=== PATIENT | male | born 1985 | race Caucasian/White ===

== ENCOUNTER 2020-02-10 14:12 | Emergency (ER) | payer BC ==
[~2020-02-10] VITALS: Ht 193 cm; Wt 154.2 kg
--- NOTE | 2020-02-10 14:33 | Emergency Department Note ---
History of Present Illnes History of Present Illness Chief Complaint: Abdominal Complaints History of Present Illness This is a 34 year old male Chief Complaint Comment Patient in from home with complaints of right upper quadrant abdominal pain that started about 2 weeks ago. Patient has a history of abdominal pain and was diagnosed with a fatty liver and has been under the care of a chief recordist since then. Patient reports he had an ultrasound of his gallbladder done two days ago and no acute findings were noted. History of appendectomy. Historian: Patient Arrival Mode: Car Watch Assembly Inspector Required: No Onset (how long ago): week(s) (2) Location: RUQ Quality: Dull Radiation: Reports non-radiation Severity: mild Onset quality: gradual Duration (how long): week(s) Timing of current episode: constant Progression: unchanged Chronicity: new Context: Denies recent illness, Denies recent surgery Relieving factors: none Exacerbating factors: none Associated symptoms: Reports denies other symptoms Treatments prior to arrival: none Past Medical/Family History Physician Review I have reviewed the patient's past medical and family history. Any updates have been documented here. Past Medical History Recent Fever: No Clinical Suspicion of Infectio: No New/Unexplained Change in Ment: No Past Medical History: Liver Disease, Anxiety Past Surgical History: Appendectomy Other Last Tetanus: UNKNOWN Review of Systems Review of Systems Constitutional: Reports no symptoms EENTM: Reports no symptoms Cardiovascular: Reports no symptoms Respiratory: Reports no symptoms Gastrointestinal: Reports as per HPI, Reports abdominal pain, Reports constipation Genitourinary: Reports no symptoms Musculoskeletal: Reports no symptoms Integumentary: Reports no symptoms Neurological: Reports no symptoms Psychological: Reports no symptoms Endocrine: Reports no symptoms Hematological/Lymphatic: Reports no symptoms Physical Exam Related Data Allergies: Coded Allergies: No Known Allergies (Unverified , 10/26/16) Triage Vital Signs Vital Signs Date Time Temp Pulse Resp B/P (MAP) Pulse Ox O2 Delivery O2 Flow Rate FiO2 02/10/20 14:16 97.6 76 14 157/94 100 Room Air Vital signs reviewed: Yes Physical Exam CONSTITUTIONAL Constitutional: Present well-developed, Present well-nourished HENT HENT: Present normocephalic, Present atraumatic, Present oropharynx clear/moist, Present nose normal HENT L/R: Present left ext ear normal, Present right ext ear normal EYES Eyes: Reports PERRL, Reports conjunctivae normal NECK Neck: Present ROM normal PULMONARY Pulmonary: Present effort normal, Present breath sounds normal CARDIOVASCULAR Cardiovascular: Present regular rhythm, Present heart sounds normal, Present capillary refill normal, Present normal rate GASTROINTESTINAL Abdominal: Present soft, Present nontender, Present bowel sounds normal GENITOURINARY Genitourinary: Present exam deferred SKIN Skin: Present warm, Present dry MUSCULOSKELETAL Musculoskeletal: Present ROM normal NEUROLOGICAL Neurological: Present alert, Present oriented x 3, Present no gross motor or sensory deficits PSYCHOLOGICAL Psychological: Present mood/affect normal, Present judgement normal Results Laboratory Lab results reviewed: Yes Imaging Imaging results reviewed: Yes Assessment & Plan Medical Decision Making MDM 34 y.o M presents for RUQ pain. Has had extensive w/u including recent RUQ US which was negative. Labs/CT ordered. W/u benign. Doubt emergent process at this time. I discussed results patient as well as expected disease time course and management. They will follow up with their primary care provider or return to the emergency department for new or worsening symptoms. Patient's appropriate for discharge. Reassessment Reassessment time: 16:57 Reassessment Well appearing, NAD Assessment & Plan Final Impression: (1) Abdominal pain Depart Disposition: HOME, SELF-CARE Last Vital Signs Date Time Temp Pulse Resp B/P (MAP) Pulse Ox O2 Delivery O2 Flow Rate FiO2 02/10/20 14:16 97.6 76 14 157/94 100 Room Air Home Meds No Active Prescriptions or Reported Meds CHEN SHAW MD Feb 10, 2020 14:32
--- OUTSIDE RECORDS SUMMARY | 2020-02-10 14:37 | XMS REPORT | Continuity of Care Document ---
Author Author CELINA Toussaint [facility] Address Unknown Phone Unavailable Care Team Providers Care Chicken Fancier Name Role Phone [facility] Unavailable Un available Problems Problem Status Onset Date Classification Date Reported Comments Source ELEVATED LIVER ENZYMES Active 11/12/2013 Condition 06/15/2014 [facility] HYPOGONADISM Active 11/12/2013 Condition 06/15/2014 [facility] MORBID OBESITY Active 11/10/2013 Condition 06/15/2014 [facility] SNORING Inactive 11/10/2013 Condition 06/15/2014 [facility] ALLERGIC RHINITIS Active 11/10/2013 Condition 06/15/2014 [facility] CELLULITIS Inactive 02/16/2013 Condition 06/15/2014 [facility] PHARYNGITIS Inactive 02/25/2012 Condition 06/15/2014 [facility] INFLUENZA Inactive 01/17/2012 Condition 06/15/2014 [facility] POSTURAL TREMOR Inactive 03/15/2011 Condition 06/15/2014 [facility] TESTOSTERONE DEFICIENCY Inacti ve 12/21/2010 Condition 06/15/2014 [facility] HERPES ZOSTER Inactive 08/15/2009 Condition 06/15/2014 [facility] WELL ADULT Active 06/22/2009 Condition 06/15/2014 [facility] BICIPITAL TENOSYNOVITIS Inacti ve 08/23/2008 Condition 06/15/2014 [facility] ARM PAIN, RIGHT Inactive 08/23/2008 Condition 06/15/2014 [facility] RASH Inactive 04/08/2008 Condition 06/15/2014 [facility] WEIGHT GAIN Inactive 04/08/2008 Condition 06/15/2014 [facility] SINUSITIS, ACUTE Inactive 09/01/2007 Condition 06/15/2014 [facility] MOOD SWINGS Inactive 07/22/2007 Condition 06/15/2014 [facility] DEPRESSION NOS Inactive 07/22/2007 Condition 06/15/2014 [facility] HYPERLIPIDEMIA Active 05/21/2007 Condition 06/15/2014 [facility] FATIGUE Inactive 05/21/2007 Condition 06/15/2014 [facility] KNEE PAIN Inactive 05/09/2007 Condition 06/15/2014 [facility] HIP PAIN, RIGHT Inactive 02/25/2007 Condition 06/15/2014 [facility] ANXIETY Active Condition 06/15/2014 [facility] Medications Medication Details Route Status Patient Instructions Ordering Provider Order Date Source FETZIMA TITRATION 20 & 40 MG C4PK take as directed Active 06/15/2014 [facility] VITAMIN D3 12265 UNIT CAPS Damaso e 1 capsule by mouth every week Active 11/12/2013 [facility] FENOFIBRATE MICRONIZED 134 MG CAPS Take one capsule by mouth daily Active 11/12/2013 [facility] VITAMIN D3 73556 UNIT CAPS Damaso e 1 capsule by mouth every week No Longer Active 11/12/2013 [facility] ZOLOFT 25 MG TABS one tablet b y mouth once daily No Longer Active 11/10/2013 [facility] FLONASE 50 MCG/ACT SUSP Two sp rays each nostril daily No Longer Active 11/10/2013 [facility] AMOXICILLIN CAP 500MG Take one capsule by mouth 3 times a day for 10 days No Longer Active 07/08/2013 [facility] PRISTIQ 50 MG TB24 1 tab by mo ut once a day No Longer Active 07/08/2013 [facility] AMOXICILLIN CAP 500MG Take one capsule by mouth 3 times a day for 10 days No Longer Active 07/08/2013 [facility] AMOXICILLIN CAP 500MG Take one capsule by mouth 3 times a day for 10 days No Longer Active 07/08/2013 [facility] AMOXICILLIN CAP 500MG Take one capsule by mouth 3 times a day for 10 days No Longer Active 07/08/2013 [facility] HYDROCODONE-ACETAMINOPHEN 5-325 MG TABS one tablet PO every 4-6 hrs prn pain No Longer Active 02/16/2013 [facility] BACTRIM DS TAB 800-160 1 PO ev magda 12 hours No Longer Active 02/16/2013 [facility] HYDROCODONE-ACETAMINOPHEN 5-325 MG TABS one tablet PO every 4-6 hrs prn pain No Longer Active 02/16/2013 [facility] HYDROCODONE-ACETAMINOPHEN 5-325 MG TABS one tablet PO every 4-6 hrs prn pain No Longer Active 02/16/2013 [facility] HYDROCODONE-ACETAMINOPHEN 5-325 MG TABS one tablet PO every 4-6 hrs prn pain No Longer Active 02/16/2013 [facility] BUSPIRONE HCL 5 MG TABS 1 po t id No Longer Active 07/03/2012 [facility] BUSPIRONE HCL 5 MG TABS 1 po t id No Longer Active 07/03/2012 [facility] HYDROCODONE-ACETAMINOPHEN 5-500 MG TABS one po every 8 hrs prn pain No Longer Active 02/29/2012 [facility] LIDOCAINE VISCOUS 2 % SOLN 15c c swish and spit every 6 hrs prn No Longer Active 02/29/2012 [facility] CEFDINIR 300 MG CAPS one po bid No Longer Active 02/25/2012 [facility] TAMIFLU 75 MG CAPS 1 po bid x 5 days No Longer Active 01/17/2012 [facility] LYRICA 50 MG CAPS one po bid f or nerve pain Inactive 10/02/2010 [facility] LEXAPRO 20 MG TABS 1 po qd Inactive 10/02/2010 [facility] LYRICA 50 MG CAPS one po bid f or nerve pain Inactive 10/02/2010 [facility] LYRICA 50 MG CAPS one po bid f or nerve pain Inactive 10/02/2010 [facility] VALTREX 1 GM TABS 1 po tid No Longer Active 08/15/2009 [facility] MOBIC 15 MG TABS one po daily Inactive 06/22/2009 [facility] TRIAMCINOLONE ACETONIDE 0.1 % CREA apply to rash TID for 7 days Inactive 07/08/2008 [facility] AMOXICILLIN CAP 500MG one po t id for 7 days No Longer Active 09/01/2007 [facility] AMOXICILLIN CAP 500MG one po t id for 7 days No Longer Active 09/01/2007 [facility] AMOXICILLIN CAP 500MG one po t id for 7 days No Longer Active 09/01/2007 [facility] AMOXICILLIN CAP 500MG one po t id for 7 days No Longer Active 09/01/2007 [facility] Allergies, Adverse Reactions, Alerts No Known Medication Allergies Immunizations No Data Provided for This Section Results Order Name Results Value Reference Range Date Interpretation Comments Source Chemistry CHOLESTEROL 238 - 199 12/30/2013 [facility] Chemistry TRIGLYCERIDE 408 - 149 12/30/2013 [facility] Chemistry HDL 39 >=61 12/30/2013 [facility] Chemistry SODIUM 142 MEQ/L 135 - 145 12/30/2013 [facility] Chemistry POTASSIUM 4.0 MEQ/L 3.5 - 5.1 12/30/2013 [facility] Chemistry CREATININE 1.2 0.5 - 1.4 12/30/2013 [facility] Chemistry BUN 12 7 - 22 12/30/2013 [facility] Chemistry BUN/CREAT 10 6 - 25 12/30/2013 [facility] Chemistry ALBUMIN 3.9 3.5 - 5.0 12/30/2013 [facility] Chemistry CALCIUM 9.1 8.5 - 10.5 12/30/2013 [facility] Chemistry SGPT (ALT) 96 0 - 65 12/30/2013 [facility] Chemistry SGOT (AST) 44 0 - 37 12/30/2013 [facility] Chemistry ALK PHOS 41 39 - 136 12/30/2013 [facility] Chemistry CHOLESTEROL 238 - 199 12/30/2013 [facility] Chemistry TRIGLYCERIDE 408 - 149 12/30/2013 [facility] Chemistry HDL 39 >=61 12/30/2013 [facility] Chemistry LDL See Note mg/dL - 99 12/30/2013 [facility] Chemistry SODIUM 142 MEQ/L 135 - 145 12/30/2013 [facility] Chemistry POTASSIUM 4.0 MEQ/L 3.5 - 5.1 12/30/2013 [facility] Chemistry CREATININE 1.2 0.5 - 1.4 12/30/2013 [facility] Chemistry BUN 12 7 - 22 12/30/2013 [facility] Chemistry BUN/CREAT 10 6 - 25 12/30/2013 [facility] Chemistry ALBUMIN 3.9 3.5 - 5.0 12/30/2013 [facility] Chemistry CALCIUM 9.1 8.5 - 10.5 12/30/2013 [facility] Chemistry SGPT (ALT) 96 0 - 65 12/30/2013 [facility] Chemistry SGOT (AST) 44 0 - 37 12/30/2013 [facility] Chemistry ALK PHOS 41 39 - 136 12/30/2013 [facility] Chemistry CHOLESTEROL 238 - 199 12/30/2013 [facility] Chemistry TRIGLYCERIDE 408 - 149 12/30/2013 [facility] Chemistry HDL 39 >=61 12/30/2013 [facility] Chemistry LDL See Note mg/dL - 99 12/30/2013 [facility] Chemistry SODIUM 142 MEQ/L 135 - 145 12/30/2013 [facility] Chemistry POTASSIUM 4.0 MEQ/L 3.5 - 5.1 12/30/2013 [facility] Chemistry CREATININE 1.2 0.5 - 1.4 12/30/2013 [facility] Chemistry BUN 12 7 - 22 12/30/2013 [facility] Chemistry BUN/CREAT 10 6 - 25 12/30/2013 [facility] Chemistry ALBUMIN 3.9 3.5 - 5.0 12/30/2013 [facility] Chemistry CALCIUM 9.1 8.5 - 10.5 12/30/2013 [facility] Chemistry SGPT (ALT) 96 0 - 65 12/30/2013 [facility] Chemistry SGOT (AST) 44 0 - 37 12/30/2013 [facility] Chemistry ALK PHOS 41 39 - 136 12/30/2013 [facility] Chemistry HGBA1C 5.1 - 5.6 11/10/2013 [facility] Chemistry TSH 2.780 0.360 - 3.740 11/10/2013 [facility] Chemistry CHOLESTEROL 247 - 199 11/10/2013 [facility] Chemistry TRIGLYCERIDE 455 - 149 11/10/2013 [facility] Chemistry HDL 39 >=61 11/10/2013 [facility] Chemistry LDL See Note mg/dL - 99 11/10/2013 [facility] Chemistry SODIUM 139 MEQ/L 135 - 145 11/10/2013 [facility] Chemistry POTASSIUM 4.3 MEQ/L 3.5 - 5.1 11/10/2013 [facility] Chemistry CREATININE 1.2 0.5 - 1.4 11/10/2013 [facility] Chemistry BUN 10 7 - 22 11/10/2013 [facility] Chemistry BUN/CREAT 8 6 - 25 11/10/2013 [facility] Chemistry ALBUMIN 4.1 3.5 - 5.0 11/10/2013 [facility] Chemistry CALCIUM 9.6 8.5 - 10.5 11/10/2013 [facility] Chemistry SGPT (ALT) 124 0 - 65 11/10/2013 [facility] Chemistry SGOT (AST) 51 0 - 37 11/10/2013 [facility] Chemistry ALK PHOS 50 39 - 136 11/10/2013 [facility] Chemistry TESTO, TOTAL 273 241 - 827 11/10/2013 [facility] Chemistry HGBA1C 5.1 - 5.6 11/10/2013 [facility] Chemistry TSH 2.780 0.360 - 3.740 11/10/2013 [facility] Chemistry CHOLESTEROL 247 - 199 11/10/2013 [facility] Chemistry TRIGLYCERIDE 455 - 149 11/10/2013 [facility] Chemistry HDL 39 >=61 11/10/2013 [facility] Chemistry LDL See Note mg/dL - 99 11/10/2013 [facility] Chemistry SODIUM 139 MEQ/L 135 - 145 11/10/2013 [facility] Chemistry POTASSIUM 4.3 MEQ/L 3.5 - 5.1 11/10/2013 [facility] Chemistry CREATININE 1.2 0.5 - 1.4 11/10/2013 [facility] Chemistry BUN 10 7 - 22 11/10/2013 [facility] Chemistry BUN/CREAT 8 6 - 25 11/10/2013 [facility] Chemistry ALBUMIN 4.1 3.5 - 5.0 11/10/2013 [facility] Chemistry CALCIUM 9.6 8.5 - 10.5 11/10/2013 [facility] Chemistry SGPT (ALT) 124 0 - 65 11/10/2013 [facility] Chemistry SGOT (AST) 51 0 - 37 11/10/2013 [facility] Chemistry ALK PHOS 50 39 - 136 11/10/2013 [facility] Chemistry TESTO, TOTAL 273 241 - 827 11/10/2013 [facility] Hematology HGB 15.9 14.0 - 18.0 11/10/2013 [facility] Hematology HCT 46.1 42.0 - 54.0 11/10/2013 [facility] Hematology PLATELETS 188 K/CMM 133 - 450 11/10/2013 [facility] Hematology HGB 15.9 14.0 - 18.0 02/25/2012 [facility] Hematology HCT 45.4 42.0 - 54.0 02/25/2012 [facility] Hematology PLATELETS 127 K/CMM 133 - 450 02/25/2012 [facility] Chemistry CHOLESTEROL 239 120 - 200 10/19/2010 [facility] Chemistry TRIGLYCERIDE 223 0 - 200 10/19/2010 [facility] Chemistry HDL 42 >=35 10/19/2010 [facility] Chemistry CHOLESTEROL 239 120 - 200 10/19/2010 [facility] Chemistry TRIGLYCERIDE 223 0 - 200 10/19/2010 [facility] Chemistry HDL 42 >=35 10/19/2010 [facility] Chemistry LDL 152 0 - 129 10/19/2010 [facility] Chemistry FOLATE 39.8 >=3.0 10/19/2010 [facility] Chemistry TSH 2.230 0.360 - 3.740 10/19/2010 [facility] Chemistry SODIUM 141 MEQ/L 135 - 145 10/19/2010 [facility] Chemistry POTASSIUM 4.1 MEQ/L 3.5 - 5.1 10/19/2010 [facility] Chemistry BUN 12 7 - 22 10/19/2010 [facility] Chemistry CREATININE 1.1 0.5 - 1.4 10/19/2010 [facility] Chemistry BUN/CREAT 11 6 - 25 10/19/2010 [facility] Chemistry ALBUMIN 4.3 3.5 - 5.0 10/19/2010 [facility] Chemistry CALCIUM 9.2 8.5 - 10.5 10/19/2010 [facility] Chemistry SGOT (AST) 29 0 - 37 10/19/2010 [facility] Chemistry CHOLESTEROL 239 120 - 200 10/19/2010 [facility] Chemistry TRIGLYCERIDE 223 0 - 200 10/19/2010 [facility] Chemistry HDL 42 >=35 10/19/2010 [facility] Chemistry LDL 152 0 - 129 10/19/2010 [facility] Chemistry FOLATE 39.8 >=3.0 10/19/2010 [facility] Chemistry TSH 2.230 0.360 - 3.740 10/19/2010 [facility] Chemistry SODIUM 141 MEQ/L 135 - 145 10/19/2010 [facility] Chemistry POTASSIUM 4.1 MEQ/L 3.5 - 5.1 10/19/2010 [facility] Chemistry BUN 12 7 - 22 10/19/2010 [facility] Chemistry CREATININE 1.1 0.5 - 1.4 10/19/2010 [facility] Chemistry BUN/CREAT 11 6 - 25 10/19/2010 [facility] Chemistry ALBUMIN 4.3 3.5 - 5.0 10/19/2010 [facility] Chemistry CALCIUM 9.2 8.5 - 10.5 10/19/2010 [facility] Chemistry SGOT (AST) 29 0 - 37 10/19/2010 [facility] Chemistry SGPT (ALT) 44 0 - 65 10/19/2010 [facility] Chemistry ALK PHOS 52 39 - 136 10/19/2010 [facility] Chemistry TESTO, FREE 62.8 35.0 - 155.0 10/19/2010 [facility] Chemistry SGPT (ALT) 44 0 - 65 10/19/2010 [facility] Chemistry ALK PHOS 52 39 - 136 10/19/2010 [facility] Chemistry TESTO, FREE 62.8 35.0 - 155.0 10/19/2010 [facility] Hematology HGB 15.0 14.0 - 18.0 10/19/2010 [facility] Hematology HCT 42.1 42.0 - 54.0 10/19/2010 [facility] Hematology PLATELETS 152 K/CMM 133 - 450 10/19/2010 [facility] Serology EMANUEL Negative Negative 10/19/2010 [facility] Serology EMANUEL Negative Negative 10/19/2010 [facility] Serology EMANUEL Negative Negative 10/19/2010 [facility] Chemistry CHOLESTEROL 209 120 - 200 06/22/2009 [facility] Chemistry TRIGLYCERIDE 307 0 - 200 06/22/2009 [facility] Chemistry HDL 38 >=35 06/22/2009 [facility] Chemistry CHOLESTEROL 209 120 - 200 06/22/2009 [facility] Chemistry TRIGLYCERIDE 307 0 - 200 06/22/2009 [facility] Chemistry HDL 38 >=35 06/22/2009 [facility] Chemistry LDL 110 0 - 129 06/22/2009 [facility] Chemistry TSH 1.480 0.360 - 3.740 06/22/2009 [facility] Chemistry SODIUM 139 135 - 145 06/22/2009 [facility] Chemistry POTASSIUM 4.0 3.5 - 5.1 06/22/2009 [facility] Chemistry BUN 14 7 - 22 06/22/2009 [facility] Chemistry CREATININE 1.3 0.5 - 1.4 06/22/2009 [facility] Chemistry BUN/CREAT 11 6 - 25 06/22/2009 [facility] Chemistry ALBUMIN 4.0 3.5 - 5.0 06/22/2009 [facility] Chemistry CALCIUM 9.2 8.5 - 10.5 06/22/2009 [facility] Chemistry CHOLESTEROL 209 120 - 200 06/22/2009 [facility] Chemistry TRIGLYCERIDE 307 0 - 200 06/22/2009 [facility] Chemistry HDL 38 >=35 06/22/2009 [facility] Chemistry LDL 110 0 - 129 06/22/2009 [facility] Chemistry TSH 1.480 0.360 - 3.740 06/22/2009 [facility] Chemistry SODIUM 139 135 - 145 06/22/2009 [facility] Chemistry POTASSIUM 4.0 3.5 - 5.1 06/22/2009 [facility] Chemistry BUN 14 7 - 22 06/22/2009 [facility] Chemistry CREATININE 1.3 0.5 - 1.4 06/22/2009 [facility] Chemistry BUN/CREAT 11 6 - 25 06/22/2009 [facility] Chemistry ALBUMIN 4.0 3.5 - 5.0 06/22/2009 [facility] Chemistry CALCIUM 9.2 8.5 - 10.5 06/22/2009 [facility] Chemistry SGOT (AST) 30 0 - 37 06/22/2009 [facility] Chemistry SGPT (ALT) 49 0 - 65 06/22/2009 [facility] Chemistry ALK PHOS 53 39 - 136 06/22/2009 [facility] Chemistry SGOT (AST) 30 0 - 37 06/22/2009 [facility] Chemistry SGPT (ALT) 49 0 - 65 06/22/2009 [facility] Chemistry ALK PHOS 53 39 - 136 06/22/2009 [facility] Hematology HGB 15.9 14.0 - 18.0 06/22/2009 [facility] Hematology HCT 44.6 42.0 - 54.0 06/22/2009 [facility] Hematology PLATELETS 146 K/CMM 133 - 450 06/22/2009 [facility] Urinalysis UA COLOR Yellow Yellow 06/22/2009 [facility] Urinalysis BACTERIA URN None Seen NoneSeen 06/22/2009 [facility] Urinalysis UA COLOR Yellow Yellow 06/22/2009 [facility] Urinalysis BACTERIA URN None Seen NoneSeen 06/22/2009 [facility] Chemistry CHOLESTEROL 264 05/10/2007 [facility] Chemistry HDL 43 05/10/2007 [facility] Chemistry LDL 168 05/10/2007 [facility] Chemistry CHOLESTEROL 264 05/10/2007 [facility] Chemistry HDL 43 05/10/2007 [facility] Chemistry LDL 168 05/10/2007 [facility] Chemistry TRIGLYCERIDE 267 05/10/2007 [facility] Chemistry ALBUMIN 5.1 05/10/2007 [facility] Chemistry ALK PHOS 56 05/10/2007 [facility] Chemistry BUN/CREAT 13 05/10/2007 [facility] Chemistry CALCIUM 9.9 05/10/2007 [facility] Chemistry CHOLESTEROL 264 05/10/2007 [facility] Chemistry HDL 43 05/10/2007 [facility] Chemistry LDL 168 05/10/2007 [facility] Chemistry TRIGLYCERIDE 267 05/10/2007 [facility] Chemistry ALBUMIN 5.1 05/10/2007 [facility] Chemistry ALK PHOS 56 05/10/2007 [facility] Chemistry BUN/CREAT 13 05/10/2007 [facility] Chemistry CALCIUM 9.9 05/10/2007 [facility] Chemistry CREATININE 1.15 05/10/2007 [facility] Chemistry POTASSIUM 4.4 05/10/2007 [facility] Chemistry SODIUM 140 05/10/2007 [facility] Chemistry CREATININE 1.15 05/10/2007 [facility] Chemistry POTASSIUM 4.4 05/10/2007 [facility] Chemistry SODIUM 140 05/10/2007 [facility] Hematology HGB 17.3 05/10/2007 [facility] Hematology HCT 49.7 05/10/2007 [facility] Hematology PLATELETS 175 05/10/2007 [facility] Pathology Reports No Data Provided for This Section Diagnostic Reports No Data Provided for This Section Consultation Notes No Data Provided for This Section Discharge Summaries No Data Provided for This Section History and Physicals No Data Provided for This Section Vital Signs Vital Sign Value Date Comments Source Height 74 0 06/15/2014 [facility] Weight 338 06/15/2014 [facility] Temperature Oral (F) 98.0 F 06/15/2014 [facility] Heart Rate 87 06/15/2014 [facility] Systolic (mm Hg) 135 06/15/2014 [facility] Diastolic (mm Hg) 82 06/15/2014 [facility] Weight 331 12/30/2013 [facility] Temperature Oral (F) 97.3 F 12/30/2013 [facility] Respitory Rate 16 12/30/2013 [facility] Heart Rate 87 12/30/2013 [facility] Systolic (mm Hg) 110 12/30/2013 [facility] Diastolic (mm Hg) 70 12/30/2013 [facility] Height 74 0 11/10/2013 [facility] Weight 326.13 11/10/2013 [facility] Temperature Oral (F) 97.8 F 11/10/2013 [facility] Heart Rate 74 11/10/2013 [facility] Systolic (mm Hg) 128 11/10/2013 [facility] Diastolic (mm Hg) 79 11/10/2013 [facility] Weight 336 07/08/2013 [facility] Temperature Oral (F) 98.0 F 07/08/2013 [facility] Heart Rate 85 07/08/2013 [facility] Systolic (mm Hg) 124 07/08/2013 [facility] Diastolic (mm Hg) 78 07/08/2013 [facility] Weight 335 02/16/2013 [facility] Weight 305 06/23/2012 [facility] Temperature Oral (F) 97.3 F 06/23/2012 [facility] Systolic (mm Hg) 126 06/23/2012 [facility] Diastolic (mm Hg) 70 06/23/2012 [facility] Heart Rate 89 06/23/2012 [facility] Weight 290 02/25/2012 [facility] Temperature Oral (F) 102.3 F 02/25/2012 [facility] Systolic (mm Hg) 128 02/25/2012 [facility] Diastolic (mm Hg) 76 02/25/2012 [facility] Heart Rate 108 02/25/2012 [facility] Weight 291 01/17/2012 [facility] Heart Rate 116 01/17/2012 [facility] Temperature Oral (F) 101.7 F 01/17/2012 [facility] Systolic (mm Hg) 129 01/17/2012 [facility] Diastolic (mm Hg) 66 01/17/2012 [facility] Weight 290 03/15/2011 [facility] Temperature Oral (F) 97.7 F 03/15/2011 [facility] Systolic (mm Hg) 136 03/15/2011 [facility] Diastolic (mm Hg) 66 03/15/2011 [facility] Heart Rate 77 03/15/2011 [facility] Weight 280 12/21/2010 [facility] Temperature Oral (F) 97.4 F 12/21/2010 [facility] Systolic (mm Hg) 130 12/21/2010 [facility] Diastolic (mm Hg) 67 12/21/2010 [facility] Heart Rate 72 12/21/2010 [facility] Height 74 0 10/19/2010 [facility] Weight 277 10/19/2010 [facility] Temperature Oral (F) 97.7 F 10/19/2010 [facility] Systolic (mm Hg) 110 10/19/2010 [facility] Diastolic (mm Hg) 55 10/19/2010 [facility] Heart Rate 80 10/19/2010 [facility] Height 74 0 10/02/2010 [facility] Weight 277 10/02/2010 [facility] Temperature Oral (F) 97.7 F 10/02/2010 [facility] Systolic (mm Hg) 133 10/02/2010 [facility] Diastolic (mm Hg) 53 10/02/2010 [facility] Heart Rate 73 10/02/2010 [facility] Weight 263 08/15/2009 [facility] Height 74 0 08/15/2009 [facility] Temperature Oral (F) 97.5 F 08/15/2009 [facility] Systolic (mm Hg) 98 08/15/2009 [facility] Diastolic (mm Hg) 50 08/15/2009 [facility] Heart Rate 85 08/15/2009 [facility] Weight 279 06/22/2009 [facility] Height 74 0 06/22/2009 [facility] Temperature Oral (F) 96.9 F 06/22/2009 [facility] Systolic (mm Hg) 111 06/22/2009 [facility] Diastolic (mm Hg) 64 06/22/2009 [facility] Heart Rate 68 06/22/2009 [facility] Height 74 1 [facility] Weight 270 12/29/2008 [facility] Temperature Oral (F) 96.6 F 12/29/2008 [facility] Systolic (mm Hg) 120 12/29/2008 [facility] Diastolic (mm Hg) 58 12/29/2008 [facility] Heart Rate 70 12/29/2008 [facility] Height 74 0 08/23/2008 [facility] Weight 272 08/23/2008 [facility] Temperature Oral (F) 98.2 F 08/23/2008 [facility] Heart Rate 95 08/23/2008 [facility] Systolic (mm Hg) 128 08/23/2008 [facility] Diastolic (mm Hg) 71 08/23/2008 [facility] Weight 263.19 07/08/2008 [facility] Height 74 0 07/08/2008 [facility] Temperature Oral (F) 98.0 F 07/08/2008 [facility] Heart Rate 86 07/08/2008 [facility] Systolic (mm Hg) 117 07/08/2008 [facility] Diastolic (mm Hg) 60 07/08/2008 [facility] Weight 287 04/08/2008 [facility] Temperature Oral (F) 97.8 F 04/08/2008 [facility] Systolic (mm Hg) 112 04/08/2008 [facility] Diastolic (mm Hg) 62 04/08/2008 [facility] Heart Rate 91 04/08/2008 [facility] Weight 274 09/01/2007 [facility] Temperature Oral (F) 97.9 F 09/01/2007 [facility] Heart Rate 79 09/01/2007 [facility] Systolic (mm Hg) 107 09/01/2007 [facility] Diastolic (mm Hg) 67 09/01/2007 [facility] Weight 274.25 07/22/2007 [facility] Temperature Oral (F) 97.2 F 07/22/2007 [facility] Systolic (mm Hg) 12 07/22/2007 [facility] Diastolic (mm Hg) 63 07/22/2007 [facility] Heart Rate 78 07/22/2007 [facility] Height 74 0 07/22/2007 [facility] Weight 275 05/21/2007 [facility] Height 6'4 05/21/2007 [facility] Systolic (mm Hg) 124 05/21/2007 [facility] Diastolic (mm Hg) 61 05/21/2007 [facility] Weight 273.4 05/09/2007 [facility] Height 6'4 05/09/2007 [facility] Systolic (mm Hg) 121 05/09/2007 [facility] Diastolic (mm Hg) 71 05/09/2007 [facility] Weight 274.8 02/25/2007 [facility] Height 6'4 02/25/2007 [facility] Systolic (mm Hg) 121 02/25/2007 [facility] Diastolic (mm Hg) 73 02/25/2007 [facility] Encounters Location Location Details Encounter Type Encounter Number Reason For Visit Attending Provider ADM Date DC Date Status Source [facility] Office Visit [id number] Carmen Hankins MD 11/10/2013 11/10/2013 [facility] Lab Report [id number] Carmen Hankins MD 11/10/2013 11/10/2013 [facility] Office Visit [id number] Carmen Hankins MD 12/30/2013 12/30/2013 [facility] Lab Report [id number] Carmen Hankins MD 12/30/2013 12/30/2013 [facility] Office Visit [id number] Carmen Hankins MD 06/15/2014 06/15/2014 [facility] Outpatient [id number] MAYA VAIL 01/17/2016 Active [facility] Procedures No Data Provided for This Section Assessment and Plan No Data Provided for This Section Plan of Care No Data Provided for This Section Social History No Data Provided for This Section Family History No Data Provided for This Section Advance Directives No Data Provided for This Section Functional Status No Data Provided for This Section
--- OUTSIDE RECORDS SUMMARY | 2020-02-10 14:37 | XMS REPORT | Continuity of Care Document ---
Author Author [facility] t Organization [facility] Address [address] [place] [address] [address] [place] [address] Phone Unavailable Care Team Providers Care Supervisor Facepiece Line Name Role Phone Visit, Nurse Adc Attphys Unavailable Pc, Echo Room 1 - Adc Attphys Unavailable LUDY VICKERS Attphys Unavailable Problems Condition Name Condition Details Condition Category Status Onset Date Resolution Date Last Treatment Date Treating Clinician Comments Source ELEVATED LIVER ENZYMES ELEV ATED LIVER ENZYMES Active 11/12/2013 Condition 06/15/2014 Medical Group Condition Active 2013-11-12 00:00:00 2014-06-15 15:18:01 [facility] HYPOGONADISM HYPO GONADISM Active 11/12/2013 Condition 06/15/2014 Medical Group Condition Active 2013-11-12 00:00:00 2014-06-15 15:18:01 Henry Gonsalez MORBID OBESITY MORB ID OBESITY Active 11/10/2013 Condition 06/15/2014 Medical Group Condition Active 2013-11-10 00:00:00 2014-06-15 15:18:01 Henry Gonsalez ALLERGIC RHINITIS CAROL RGIC RHINITIS Active 11/10/2013 Condition 06/15/2014 Medical Group Condition Active 2013-11-10 00:00:00 2014-06-15 15:18:01 [facility] WELL ADULT WELL ADULT Active 06/22/2009 Condition 06/15/2014 Medical Group Condition Active 2009-06-22 00:00:00 2014-06-15 1 5:18:01 [facility] HYPERLIPIDEMIA HYPE RLIPIDEMIA Active 05/21/2007 Condition 06/15/2014 Medical Group Condition Active 2007-05-21 00:00:00 2014-06-15 15:18:01 Henry Gonsalez ANXIETY ANXI ETY Active Condition 06/15/2014 Medical Group Condition Active 2014-06-15 15:18:01 [facility] History of Past Illness Condition Name Condition Details Condition Category Status Onset Date Resolution Date Last Treatment Date Treating Clinician Comments Source SNORING SNOR ING Inactive 11/10/2013 Condition 06/15/2014 Medical Group Condition Inactive 2013-11-10 00:00:00 2014-06-15 15:18:01 2014-06-15 15:18:01 [facility] CELLULITIS CELL ULITIS Inactive 02/16/2013 Condition 06/15/2014 Medical Group Condition Inactive 2013-02-16 00:00:00 2014-06-15 15: 18:01 2014-06-15 15:18:01 [facility] PHARYNGITIS PHAR YNGITIS Inactive 02/25/2012 Condition 06/15/2014 Medical Group Condition Inactive 2012-02-25 00:00:00 23-06-06 15:18:01 2014-06-15 15:18:01 [facility] INFLUENZA INFL UENZA Inactive 01/17/2012 Condition 06/15/2014 Medical Group Condition Inactive 2012-01-17 00:00:00 2014-06-15 15:18 :01 2014-06-15 15:18:01 [facility] POSTURAL TREMOR POST URAL TREMOR Inactive 03/15/2011 Condition 06/15/2014 Medical Group Condition Inactive 2011-03-15 00: 00:00 2014-06-15 15:18:01 2014-06-15 15:18:01 [facility] TESTOSTERONE DEFICIENCY TEST OSTERONE DEFICIENCY Inactive 12/21/2010 Condition 06/15/2014 Medical Group Condition Inactive 2010-12-21 00:00:00 2014-06-15 15:18:01 2014-06-15 [facility]:18:01 [facility] HER[facility] ZOSTER HERP ES ZOSTER Inactive 08/15/2009 Condition 06/15/2014 Medical Group Condition Inactive 2009-08-15 00: 00:00 2014-06-15 15:18:01 2014-06-15 15:18:01 [facility] BICIPITAL TENOSYNOVITIS BICI PITAL TENOSYNOVITIS Inactive 08/23/2008 Condition 06/15/2014 Medical Group Condition Inactive 2008-08-23 00:00:00 2014-06-15 15:18:01 2014-06-15 15:18:01 [facility] ARM PAIN, RIGHT ARM PAIN, RIGHT Inactive 08/23/2008 Condition 06/15/2014 Medical Group Condition Inactive 2008-08-23 00: 00:00 2014-06-15 15:18:01 2014-06-15 15:18:01 [facility] RASH RASH Inactive 04/08/2008 Condition 06/15/2014 Medical Group Condition Inactive 2008-04-08 00:00:00 2014-06-15 15:18:01 2014-06-15 15:18:01 [facility] WEIGHT GAIN WEIG HT GAIN Inactive 04/08/2008 Condition 06/15/2014 Medical Group Condition Inactive 2008-04-08 00:00:00 20 23-06-06 15:18:01 2014-06-15 15:18:01 [facility] SINUSITIS, ACUTE SINU SITIS, ACUTE Inactive 09/01/2007 Condition 06/15/2014 Medical Group Condition Inactive 2007-09-01 00: 00:00 2014-06-15 15:18:01 2014-06-15 15:18:01 [facility] MOOD SWINGS MOOD SWINGS Inactive 07/22/2007 Condition 06/15/2014 Medical Group Condition Inactive 2007-07-22 00:00:00 23-06-06 15:18:01 2014-06-15 15:18:01 [facility] DEPRESSION NOS DEPR ESSION NOS Inactive 07/22/2007 Condition 06/15/2014 Medical Group Condition Inactive 2007-07-22 00: 00:00 2014-06-15 15:18:01 2014-06-15 15:18:01 [facility] FATIGUE FATI BRI Inactive 05/21/2007 Condition 06/15/2014 Medical Group Condition Inactive 2007-05-21 00:00:00 2014-06-15 15:18:01 2014-06-15 15:18:01 [facility] KNEE PAIN KNEE PAIN Inactive 05/09/2007 Condition 06/15/2014 Medical Group Condition Inactive 2007-05-09 00:00:00 2014-06-15 15:18 :01 2014-06-15 15:18:01 [facility] HIP PAIN, RIGHT HIP PAIN, RIGHT Inactive 02/25/2007 Condition 06/15/2014 Medical Group Condition Inactive 2007-02-25 00: 00:00 2014-06-15 15:18:01 2014-06-15 15:18:01 [facility] Allergies, Adverse Reactions, Alerts This patient has no known allergies or adverse reactions. Medications Ordered Medication Name Filled Medication Name Start Date Stop Da te Current Medication? Ordering Clinician Indication Dosage Frequency Signature (SIG) Comments Components Source FETZIMA TITRATION 20 & 40 MG C4PK 2014-06-15 00:00:00 Yes take as directed [facility] VITAMIN D3 37718 UNIT CAPS 2013-11-12 00:00:00 Yes Take 1 capsule by mouth every week [facility] FENOFIBRATE MICRONIZED 134 MG CAPS 2013-11-12 00:00:00 Yes Take one capsule by mouth daily [facility] VITAMIN D3 15423 UNIT CAPS 2013-11-12 00:00:00 No Take 1 capsule by mouth every week [facility] ZOLOFT 25 MG TABS 2013-11-10 00:00:00 No one tablet by mouth once daily [facility] FLONASE 50 MCG/ACT SUSP 2013-11-10 00:00:00 No Two sprays each nostril daily [facility] AMOXICILLIN CAP 500MG 2013-07-08 00:00:00 No Take one capsule by mouth 3 times a day for 10 days [facility] PRISTIQ 50 MG TB24 2013-07-08 00:00:00 No 1 tab by mouth once a day [facility] AMOXICILLIN CAP 500MG 2013-07-08 00:00:00 No Take one capsule by mouth 3 times a day for 10 days [facility] AMOXICILLIN CAP 500MG 2013-07-08 00:00:00 No Take one capsule by mouth 3 times a day for 10 days [facility] AMOXICILLIN CAP 500MG 2013-07-08 00:00:00 No Take one capsule by mouth 3 times a day for 10 days [facility] HYDROCODONE-ACETAMINOPHEN 5-325 MG TABS 2013-02-16 00:00:00 No one tablet PO every 4-6 hrs prn pain [facility] BACTRIM DS TAB 810-637 4838-12-09 00:00:00 No 1 PO every 12 hours [facility] HYDROCODONE-ACETAMINOPHEN 5-325 MG TABS 2013-02-16 00:00:00 No one tablet PO every 4-6 hrs prn pain [facility] HYDROCODONE-ACETAMINOPHEN 5-325 MG TABS 2013-02-16 00:00:00 No one tablet PO every 4-6 hrs prn pain [facility] HYDROCODONE-ACETAMINOPHEN 5-325 MG TABS 2013-02-16 00:00:00 No one tablet PO every 4-6 hrs prn pain [facility] BUSPIRONE HCL 5 MG TABS 2012-07-03 00:00:00 No 1 po tid [facility] BUSPIRONE HCL 5 MG TABS 2012-07-03 00:00:00 No 1 po tid [facility] HYDROCODONE-ACETAMINOPHEN 5-500 MG TABS 2012-02-29 00:00:00 No one po every 8 hrs prn pain [facility] LIDOCAINE VISCOUS 2 % SOLN 2012-02-29 00:00:00 No 15cc swish and spit every 6 hrs prn [facility] CEFDINIR 300 MG CAPS 2012-02-25 00:00:00 No one po bid [facility] TAMIFLU 75 MG CAPS 2012-01-17 00:00:00 No 1 po bid x 5 days [facility] LYRICA 50 MG CAPS 2010-10-02 00:00:00 No one po bid for nerve pain [facility] LEXAPRO 20 MG TABS 2010-10-02 00:00:00 No 1 po qd [facility] LYRICA 50 MG CAPS 2010-10-02 00:00:00 No one po bid for nerve pain [facility] LYRICA 50 MG CAPS 2010-10-02 00:00:00 No one po bid for nerve pain [facility] VALTREX 1 GM TABS 2009-08-15 00:00:00 No 1 po tid [facility] MOBIC 15 MG TABS 2009-06-22 00:00:00 No one po daily [facility] TRIAMCINOLONE ACETONIDE 0.1 % CREA 2008-07-08 00:00:00 No apply to rash TID for 7 days [facility] AMOXICILLIN CAP 500MG 2007-09-01 00:00:00 No one po tid for 7 days [facility] AMOXICILLIN CAP 500MG 2007-09-01 00:00:00 No one po tid for 7 days [facility] AMOXICILLIN CAP 500MG 2007-09-01 00:00:00 No one po tid for 7 days [facility] AMOXICILLIN CAP 500MG 2007-09-01 00:00:00 No one po tid for 7 days [facility] Vital Signs Vital Name Observation Time Observation Value Comments Source Height 2014-06-15 20:18:01 [facility] Weight 2014-06-15 20:18:01 [facility] Temperature Oral (F) 2014-06-15 20:18:01 98.0 F [facility] Heart Rate 2014-06-15 20:18:01 [facility] Systolic (mm Hg) 2014-06-15 20:18:01 [facility] Diastolic (mm Hg) 2014-06-15 20:18:01 [facility] Weight 2013-12-30 12:35:41 [facility] Temperature Oral (F) 2013-12-30 12:35:41 97.3 F [facility] Respitory Rate 2013-12-30 12:35:41 [facility] Heart Rate 2013-12-30 12:35:41 [facility] Systolic (mm Hg) 2013-12-30 12:35:41 [facility] Diastolic (mm Hg) 2013-12-30 12:35:41 [facility] Height 2013-11-10 13:39:23 [facility] Weight 2013-11-10 13:39:23 [facility] Temperature Oral (F) 2013-11-10 13:39:23 97.8 F [facility] Heart Rate 2013-11-10 13:39:23 [facility] Systolic (mm Hg) 2013-11-10 13:39:23 [facility] Diastolic (mm Hg) 2013-11-10 13:39:23 [facility] Weight 2013-07-08 18:53:52 [facility] Temperature Oral (F) 2013-07-08 18:53:52 98.0 F [facility] Heart Rate 2013-07-08 18:53:52 [facility] Systolic (mm Hg) 2013-07-08 18:53:52 [facility] Diastolic (mm Hg) 2013-07-08 18:53:52 [facility] Weight 2013-02-16 18:38:41 [facility] Weight 2012-06-23 20:54:21 [facility] Temperature Oral (F) 2012-06-23 20:54:21 97.3 F [facility] Systolic (mm Hg) 2012-06-23 20:54:21 [facility] Diastolic (mm Hg) 2012-06-23 20:54:21 [facility] Heart Rate 2012-06-23 20:54:21 [facility] Weight 2012-02-25 22:01:21 [facility] Temperature Oral (F) 2012-02-25 22:01:21 102.3 F [facility] Systolic (mm Hg) 2012-02-25 22:01:21 [facility] Diastolic (mm Hg) 2012-02-25 22:01:21 [facility] Heart Rate 2012-02-25 22:01:21 [facility] Weight 2012-01-17 15:28:50 [facility] Heart Rate 2012-01-17 15:28:50 [facility] Temperature Oral (F) 2012-01-17 15:28:50 101.7 F [facility] Systolic (mm Hg) 2012-01-17 15:28:50 [facility] Diastolic (mm Hg) 2012-01-17 15:28:50 [facility] Weight 2011-03-15 14:49:41 [facility] Temperature Oral (F) 2011-03-15 14:49:41 97.7 F [facility] Systolic (mm Hg) 2011-03-15 14:49:41 [facility] Diastolic (mm Hg) 2011-03-15 14:49:41 [facility] Heart Rate 2011-03-15 14:49:41 [facility] Weight 2010-12-21 15:03:21 [facility] Temperature Oral (F) 2010-12-21 15:03:21 97.4 F [facility] Systolic (mm Hg) 2010-12-21 15:03:21 [facility] Diastolic (mm Hg) 2010-12-21 15:03:21 [facility] Heart Rate 2010-12-21 15:03:21 [facility] Height 2010-10-19 15:03:51 [facility] Weight 2010-10-19 15:03:51 [facility] Temperature Oral (F) 2010-10-19 15:03:51 97.7 F [facility] Systolic (mm Hg) 2010-10-19 15:03:51 [facility] Diastolic (mm Hg) 2010-10-19 15:03:51 [facility] Heart Rate 2010-10-19 15:03:51 [facility] Height 2010-10-02 19:58:00 [facility] Weight 2010-10-02 19:58:00 [facility] Temperature Oral (F) 2010-10-02 19:58:00 97.7 F [facility] Systolic (mm Hg) 2010-10-02 19:58:00 [facility] Diastolic (mm Hg) 2010-10-02 19:58:00 [facility] Heart Rate 2010-10-02 19:58:00 [facility] Weight 2009-08-15 16:11:10 [facility] Height 2009-08-15 16:11:10 [facility] Temperature Oral (F) 2009-08-15 16:11:10 97.5 F [facility] Systolic (mm Hg) 2009-08-15 16:11:10 [facility] Diastolic (mm Hg) 2009-08-15 16:11:10 [facility] Heart Rate 2009-08-15 16:11:10 [facility] Weight 2009-06-22 13:32:40 [facility] Height 2009-06-22 13:32:40 [facility] Temperature Oral (F) 2009-06-22 13:32:40 96.9 F [facility] Systolic (mm Hg) 2009-06-22 13:32:40 [facility] Diastolic (mm Hg) 2009-06-22 13:32:40 [facility] Heart Rate 2009-06-22 13:32:40 [facility] Height 2008-12-29 16:34:30 [facility] Weight 2008-12-29 16:34:30 [facility] Temperature Oral (F) 2008-12-29 16:34:30 96.6 F [facility] Systolic (mm Hg) 2008-12-29 16:34:30 [facility] Diastolic (mm Hg) 2008-12-29 16:34:30 [facility] Heart Rate 2008-12-29 16:34:30 [facility] Height 2008-08-23 17:04:31 [facility] Weight 2008-08-23 17:04:31 [facility] Temperature Oral (F) 2008-08-23 17:04:31 98.2 F [facility] Heart Rate 2008-08-23 17:04:31 [facility] Systolic (mm Hg) 2008-08-23 17:04:31 [facility] Diastolic (mm Hg) 2008-08-23 17:04:31 [facility] Weight 2008-07-08 18:58:21 [facility] Height 2008-07-08 18:58:21 [facility] Temperature Oral (F) 2008-07-08 18:58:21 98.0 F [facility] Heart Rate 2008-07-08 18:58:21 [facility] Systolic (mm Hg) 2008-07-08 18:58:21 [facility] Diastolic (mm Hg) 2008-07-08 18:58:21 [facility] Weight 2008-04-08 19:46:32 [facility] Temperature Oral (F) 2008-04-08 19:46:32 97.8 F [facility] Systolic (mm Hg) 2008-04-08 19:46:32 [facility] Diastolic (mm Hg) 2008-04-08 19:46:32 [facility] Heart Rate 2008-04-08 19:46:32 [facility] Weight 2007-09-01 16:19:44 [facility] Temperature Oral (F) 2007-09-01 16:19:44 97.9 F [facility] Heart Rate 2007-09-01 16:19:44 [facility] Systolic (mm Hg) 2007-09-01 16:19:44 [facility] Diastolic (mm Hg) 2007-09-01 16:19:44 [facility] Weight 2007-07-22 17:45:22 [facility] Temperature Oral (F) 2007-07-22 17:45:22 97.2 F [facility] Systolic (mm Hg) 2007-07-22 17:45:22 [facility] Diastolic (mm Hg) 2007-07-22 17:45:22 [facility] Heart Rate 2007-07-22 17:45:22 [facility] Height 2007-07-22 17:45:22 [facility] Weight 2007-05-21 15:49:13 [facility] Height 2007-05-21 15:49:13 [facility] Systolic (mm Hg) 2007-05-21 15:49:13 [facility] Diastolic (mm Hg) 2007-05-21 15:49:13 [facility] Weight 2007-05-09 16:49:13 [facility] Height 2007-05-09 16:49:13 [facility] Systolic (mm Hg) 2007-05-09 16:49:13 [facility] Diastolic (mm Hg) 2007-05-09 16:49:13 [facility] Weight 2007-02-25 16:49:13 [facility] Height 2007-02-25 16:49:13 [facility] Systolic (mm Hg) 2007-02-25 16:49:13 [facility] Diastolic (mm Hg) 2007-02-25 16:49:13 [facility] Procedures This patient has no known procedures. Encounters Start Date/Time End Date/Time [facility] Source 2019-09-08 14:04:56 2019-09-08 15:09:34 Laboratory Only Visit, Adc Nurse Pc, Adc Echo Room 1 - [place] [id number] Results Test Description Test Time Test Comments Results Result Comments Source Chemistry 2013-12-30 13:09:00 238 [facility] Chemistry 2013-12-30 13:09:00 408 [facility] Chemistry 2013-12-30 13:09:00 39 [facility] Chemistry 2013-12-30 13:09:00 142 MEQ/L [facility] Chemistry 2013-12-30 13:09:00 4.0 MEQ/L [facility] Chemistry 2013-12-30 13:09:00 1.2 [facility] Chemistry 2013-12-30 13:09:00 12 [facility] Chemistry 2013-12-30 13:09:00 Test Item BUN/CREAT (test code = BUN/CREAT) 10 1 6-25 [facility] HjzzumbYukfhgmzx2304-87-17 13:09:003.9[facility] 2013-12-30 13:09:009.1[facility] DospxtvFcttkbsnv7557-29-52 13:09:0096[facility] MqbfmqkUoiolmpau1284-76-88 13:09:0044[facility] SofneoxRfeaczehk6278-24-19 13:09:0041[facility] SkejtafVjfosskzz6458-69-72 13:09:70430Qzxiljtr [facility] Jprikvnuu8578-53-25 13:09:09363Rmundwyh WzmvfmsDqqxgjhyl5041-14-08 13:09:0039 [facility] ZkehpeoOxypsxjpl3902-24-06 13:09:00See Note mg/dLMemorial [facility] Sembehqsh5867-87-92 13:09:55391 MEQ/LMemorial MszyrtmUpekssqgf6154-47-23 13:09:004.0 MEQ/LMemorial EdpciblCvpykftme0137-06-18 13:09:001.2[facility] Zxoeiybia1932-62-79 13:09:0012[facility] FzkoxksOxudyxgis9072-48-50 13:09:00* Test Item Value Reference Range Interpretation Comments BUN/CREAT (test code = BUN/CREAT) 09-02 [facility] DyieoqgTylkvkpbd9147-24-28 13:09:003.9[facility] 2013-12-30 13:09:009.1[facility] TlkxckuKtwegwkxm5787-98-93 13:09:0096[facility] CahuyacRnthoyeug7937-75-18 13:09:0044[facility] JmkyhyjOyspesqsb2609-90-35 13:09:0041[facility] RzpbtimZrrsckbje6471-40-35 13:09:05939Pccrwvhm [facility] Dttlgsawq9749-98-21 13:09:35308Wyxnarmd CyjxzmhPeyarcgoi6209-69-30 13:09:0039 [facility] UpfyikpXqxabwamc1039-76-01 13:09:00See Note mg/dLMemorial [facility] Txdioyayl0866-12-58 13:09:05761 MEQ/LMemorial GfuaynkVumlcnlkm1235-23-43 13:09:004.0 MEQ/LMemorial RpugcvqIwgmcmdud8427-09-40 13:09:001.2[facility] Kkiehxgby4213-25-04 13:09:0012[facility] EkgdyetHmbpkptnq6037-57-62 13:09:00* Test Item Value Reference Range Interpretation Comments BUN/CREAT (test code = BUN/CREAT) 09-02 [facility] LrxspxqNigeossqu2872-92-85 13:09:003.9[facility] 2013-12-30 13:09:009.1[facility] RwmipuiIppqckypr8409-85-57 13:09:0096[facility] RityapzWvskobyjq4707-95-39 13:09:0044[facility] SweoyzpRdaveveha1033-30-92 13:09:0041[facility] DhdkyjmPelneqjjw7892-10-83 14:14:005.1[facility] Owvquplmy7337-70-33 14:14:002.780[facility] SfmcwhiScveynwye6225-45-52 14:14:81583 [facility] UwdiesySjwajtvlo6225-86-32 14:14:62634Vdddxmxo HermannChemistry 2013-11-10 14:14:0039[facility] HoeuteuRdmsqdmfh5126-24-04 14:14:00See Note mg/dL [facility] WfquowsJoxzwfknw1129-32-64 14:14:78393 MEQ/LMem[facility]annChemistry 2013-11-10 14:14:004.3 MEQ/LMemorial SlozzjrVbddkqgou2565-08-39 14:14:001.2 [facility] RsbvzihJswxosike9765-68-59 14:14:0010[facility] 2013-11-10 14:14:00* Test Item Value Reference Range Interpretation Comments BUN/CREAT (test code = BUN/CREAT) 8 1 09-02 [facility] SmrbkdkOsxucnams6459-13-35 14:14:004.1[facility] 2013-11-10 14:14:009.6[facility] LqdhlgoZhebpkfxk8739-97-88 14:14:08651Wsuuclck TojrhtjCsvjezgup7212-14-11 14:14:0051[facility] TdhxjbiSahkvtgbq6538-64-25 14:14:0050[facility] KmduhncMofbbmiex5669-35-04 14:14:30889Sdqvlulu [facility] Mjtszehsp9750-49-46 14:14:005.1[facility] XqfipwtCcwtrsdzm1143-27-57 14:14:002.780 [facility] FsxxnvlIdejqqcwh6880-48-18 14:14:36129Dlrcrnaa HermannChemistry 2013-11-10 14:14:93646Vpetpstj RarwoylVxansjzmp6596-50-43 14:14:0039[facility] PpfjfvhZqhhbbhhc0275-07-24 14:14:00See Note mg/dLMemorial HermannChemistry 2013-11-10 14:14:49825 MEQ/LMemorial HqdzlhxYhxkfshrs4688-69-59 14:14:004.3 MEQ/LMemorial LrxirscEsqlifvor6755-58-85 14:14:001.2[facility] 2013-11-10 14:14:0010[facility] KdowkecOppxsfkpz7324-98-00 14:14:00* Test Item Value Reference Range Interpretation Comments BUN/CREAT (test code = BUN/CREAT) 8 1 6-25 [facility] SxkkffdYrgdtlkkf9725-82-54 14:14:004.1[facility] 2013-11-10 14:14:009.6[facility] PesjyikZvsnqjikw5267-69-20 14:14:53005Zrjkhqkl BsyolwcYfbswtydl8676-48-54 14:14:0051[facility] YkowthfQfsrikqda5541-84-21 14:14:0050[facility] WrlfsxsXxuppyhut6755-92-09 14:14:43514Tabecoxs [facility] Wxtjbzfmxr9486-10-73 14:14:0015.9[facility] IcnbmxiUfimndjbrq3771-44-55 14:14:00 46.1[facility] LbkyulbDzmpqshdep2646-16-94 14:14:37150 K/CMMM[facility]orial [facility] Pdepuypvbx8585-87-78 22:43:0015.9[facility] OewbkjmFcchotgsdg4266-43-98 22:43:00 45.4[facility] CkqrtyrMezrmvnytc5273-44-33 22:43:75513 K/CMMMemorial [facility] Drlmszoer1457-70-93 16:11:93713Wbwngpte MzuqmttDsmexjvtu6838-54-37 16:11:53707 [facility] NnoqtzdUocpuxivk0490-81-26 16:11:0042[facility] 2010-10-19 16:11:55275Wtywohdp HtbwnxcQvuvpxjrj4934-76-40 16:11:25507Eylmakzx GyjknsyOoynpjgzv7363-42-30 16:11:0042[facility] FuwhpqoRuchpyyxb9760-85-47 16:11:72597Wfmjfozx CztljjrQvzkbfmgt7309-25-65 16:11:0039.8[facility] Zswmgzjkn3032-86-66 16:11:002.230[facility] JkmtdcmPhuldltza7903-91-11 16:11:40484 MEQ/LMemorial MfmtcenSdztskcla8529-65-47 16:11:004.1 MEQ/L[facility] Xkgysnlmc3259-80-42 16:11:0012[facility] FlvnorsGtqqbrbkz2414-04-27 16:11:001.1 [facility] IlwfpxhOglwlpxco5675-51-33 16:11:00* Test Item Value Reference Range Interpretation Comments BUN/CREAT (test code = BUN/CREAT) 11 1 09-02 [facility] ZnfexnmVocszuoel6263-40-11 16:11:004.3[facility] 2010-10-19 16:11:009.2[facility] BugwoslAeszwogvb4819-38-11 16:11:0029[facility] LsooufgCehyrrqtq6059-57-14 16:11:94168Gtjyyqqf FswwqsiHvqgytxja7272-37-43 16:11:07851Ypnaoojo ZtmbaqaJamffrhyz5365-96-52 16:11:0042[facility] Livudwqem4091-73-45 16:11:67580Pchmyjco MbmjycgLeonixlrp1089-37-91 16:11:0039.8 [facility] EhizebhHmilkrgfo2698-08-69 16:11:002.230[facility] 2010-10-19 16:11:71596 MEQ/LMemorial WnpjvdxEbxyskvin1367 16:11:004.1 MEQ/LMemorial AdohgjlBbuncpupn9664-93-37 16:11:0012[facility] 2010-10-19 16:11:001.1[facility] HjhwtdxQugatyukc7933-10-60 16:11:00* Test Item Value Reference Range Interpretation Comments BUN/CREAT (test code = BUN/CREAT) 11 1 09-02 [facility] FkcifjtFryjvnwig9308-50-74 16:11:004.3[facility] 2010-10-19 16:11:009.2[facility] CrmfljhEgtpalnhh2421-31-91 16:11:0029[facility] TtlnxsxMyjbhwbkl3225-65-19 16:11:0044[facility] BlroekkPilnclqpq1381-87-78 16:11:0052[facility] PaqlfmgRkrlvakme1778-29-62 16:11:0062.8[facility] Spcavayqs5234-35-95 16:11:0044[facility] SccrlknIktmshwod1817-80-70 16:11:0052 [facility] LtdhpbtDpngzhepf0823-09-80 16:11:0062.8[facility]ann[facility] 2010-10-19 16:11:0015.0[facility] UcmzeonVraonldoco7866-87-15 16:11:0042.1[facility] TbkzpbzIhoozxjnru1490-40-38 16:11:27307 K/CMMMemorial OpneoeiOvkvqfab9808-39-55 16:11:00NegativeMemorial HbokbosAufveqvm9301-32-56 16:11:00NegativeMemorial LrhncqnKqpwlrvk7382-66-69 16:11:00NegativeMemorial FxdfgfzGporxhojl0250-55-81 14:26:23612Rfimxixs GdawbbfMfclhyrwp9340-86-03 14:26:67197Sryjbabf Roscoe Cjbncdwpu1094-55-96 14:26:0038[facility] SgdjgjcBcypozvbi7392-39-86 14:26:17991 [facility] EmrhjatGuutoovto9347-46-35 14:26:02099Yjwubktv HermannChemistry 2009-06-22 14:26:0038[facility] KusjflwVxjpcmsld4555-23-78 14:26:09050Sahotptx DldjypoPykiilzml4029-21-65 14:26:001.480[facility] UytqpoiLilrbnaca7457-99-51 14:26:29493Qoctlnle QuvcuupGrkpfwwsd0393-36-47 14:26:004.0[facility] Zfgpulgbf2288-95-08 14:26:0014[facility] CgjqtfiBuxpefdhp5776-76-17 14:26:001.3 [facility] UpohocwZmjxrcgsa5370-66-78 14:26:00* Test Item Value Reference Range Interpretation Comments BUN/CREAT (test code = BUN/CREAT) 11 03 16- [facility] WbycshwBvdphmjzt7904-46-00 14:26:004.0[facility] 2009-06-22 14:26:009.2[facility] WhvcrltMliwhptyw8486-33-00 14:26:01195Uzzzwrlc JkalbxvGxskqalee8617-36-76 14:26:99741Htxxulbp RerginoRmhksaoqf4998-79-86 14:26:0038[facility] VwvjthvUxlapxtap9995-17-81 14:26:84634Emhfofis Roscoe Yqlzfkifq4970-38-29 14:26:001.480[facility] CjqtinhCzajpkqay7598-29-14 14:26:71162 [facility] HioffwaEwcajyfnh6390-57-33 14:26:004.0[facility] 2009-06-22 14:26:0014[facility] ExwoaneVqqusqgrq1525-30-17 14:26:001.3[facility] PmypccfQxpyaedfq9297-91-15 14:26:00* Test Item Value Reference Range Interpretation Comments BUN/CREAT (test code = BUN/CREAT) 11 09-02 [facility] CwhjafcByippqexe3268-14-39 14:26:004.0[facility] 2009-06-22 14:26:009.2[facility] OndvgomPigislisg0821-70-37 14:26:0030[facility] TuefzkyPybuqwmfz9806-73-47 14:26:0049[facility] UrossnxIuszqcwia4429-23-19 14:26:0053[facility] YfuwwhaRqyywszqv7220-85-63 14:26:0030[facility] Edrsbnopp6753-35-79 14:26:0049[facility] KebgrybDgimsltjj7986-29-16 14:26:0053 [facility] BzcjhlkVbqqqpewqk0863-11-50 14:26:0015.9[facility] 2009-06-22 14:26:0044.6[facility] KpoqqykZmdkjkpwml6021-56-01 14:26:97193 K/CMM [facility] ZkunvfrMlmgjxyfch8457-67-91 14:26:00YellowMem[facility] HermannUrinalysis 2009-06-22 14:26:00None SeenMem[facility] NxrcdrdTxflvbmijb3893-92-04 14:26:00Yellow [facility] QnngctfExdonrmjpz0532-57-07 14:26:00None SeenMem[facility]annChemistry 2007-05-10 16:49:62722Oajgnbwp HkecrrnDzyvlqsuf1259-70-94 16:49:1343[facility] RjbrtvfOhgqakenr8837-42-47 16:49:57713Mkiwxehn ArpqewdDutxkeevy6842-54-62 16:49:41928Twwuvnhk CnthrrkHcynwozxj5142-78-06 16:49:1343[facility] Cpngxwomg3834-73-80 16:49:81980Kqevcokb WibjzyjNvcalarkz4349-80-85 16:49:82755 [facility] DpgunypGmgkwbone1873-11-70 16:49:135.1[facility]ann[facility] 2007-05-10 16:49:1356[facility] DjdesruTpmjdympy9086-61-38 16:49:13* Test Item Value Reference Range Interpretation Comments BUN/CREAT (test code = BUN/CREAT) 13 1 [facility] GfhruxnPgwcwtwwy1700-57-60 16:49:139.9[facility]annChem[facility] 2007-05-10 16:49:58301Lpeilsov StiitroNdwsvqzyh3273-87-74 16:49:1343[facility] ChachavKqmntrdmj1634-37-91 16:49:54686Rtllyjno LvxouhrTfqbfqswe5351-40-53 16:49:60461Vwdhqolg BlnhyrfMfxhgrfnm6689-61-63 16:49:135.1[facility] Xavzhctuy5419-48-87 16:49:1356[facility] CpltmsmVetpycakj2941-32-37 16:49:13* Test Item Value Reference Range Interpretation Comments BUN/CREAT (test code = BUN/CREAT) 13 1 [facility] PmvriqxNkxulmkme7764-30-29 16:49:139.9[facility]ann[facility] 2007-05-10 16:49:131.15[facility] IiytuhtMdnfotarq7968-11-72 16:49:134.4[facility] LxghhbgTwptxtlyw9770-17-88 16:49:44791Wqtmdslg OhcmyscHaemrflar2139-33-40 16:49:131.15[facility] NtlcvpsOotzzfnhr3242-57-42 16:49:134.4[facility] Ywpfipjcy8550-73-29 16:49:48564Hvbzasyo KknlkvhSpoqgumcsq0250-56-11 16:49:1317.3 [facility] BzkdnccYnygurvkti5631-63-29 16:49:1349.7[facility]annHematology 2007-05-10 16:49:80279Fkiuhedz HermannCT ABDOMEN/PELVIS [place] [address] Patient Name: CELINA BIRCH MR #: [id number] : 1985 Age/Sex: 31/M Req #: [id number] Adm Physician: Ordered by: LUDY VICKERS MD Report #: [id number] Location: ER Room/Bed: Procedure: [id number] CT/CT ABDOMEN/PELVIS Pino enriquez Date: 10/26/16 Exam Time: 1856 REPORT STATU S: Signed EXAM: CT Abdomen and Pelvis WITH contrast INDICATION: COMPARISON: None. TECHNIQUE: Abdomen and pelvis were scanned utiliz ing a multidetector helical scanner from the lung base to the pubic symphysis after administration of IV contrast. Coronal and sagittal reformations were ob tained. Routine protocol was performed. Scan was performed when during portal venous phase. IV CONTRAST: 100 mL of Isovue-370 ORAL CONTRAST: Water COMPLICATIONS: None RADIATION DOSE: Total DL P: 1387.92 mGy*cm Estimated effective dose: (DLP x 0.015 x size factor) m Sv CTDIvol has been reviewed. It is below the limits set by the Radiation Protocol Committee (RPC). FINDINGS: LINES and TUBES: None. LOW ER THORAX: Unremarkable HEPATOBILIARY: Diffuse hypoattenuation of the live r compatible with hepatic steatosis. No focal hepatic lesions. No biliary yaya brunilda dilation. GALLBLADDER: No radio-opaque stones or sludge. No wall thic kening. SPLEEN: Enlarged measuring approximately 14.6 cm in length. P ANCREAS: No focal masses or ductal dilatation. ADRENALS: No adrenal nodul es KIDNEYS/URETERS: Kidneys enhance symmetrically. No hydronephrosis. No cystic or solid mass lesions. No stones. GI TRACT: No abnormal disten tion, wall thickening, or evidence of bowel obstruction. Appendix is not clearly identified. There is however no fat stranding or adenopathy in the ri ght lower quadrant to suggest appendicitis. PELVIC ORGANS/BLADDER: Unremark able. LYMPH NODES: No lymphadenopathy. VESSELS: Unremarkable. PER ITONEUM / RETROPERITONEUM: No free air or fluid. BONES: Unremarkable. SOFT TISSUES: Small fat-containing umbilical hernia. IMPRESSION : 1. No acute abnormalities in the abdomen and pelvis. 2. Hepatic steatos is. 3. Splenomegaly. Signed by: DR. Calin Hammond MD on 10/26/2016 7:28 PM Dictated By: CALIN HAMMOND MD 27 Transcribed By: LUZ on 10/26/161927 COPY TO: LUDY VICKERS MD GALLBLADDER [place] [address] Patient Name: CELINA BIRCH MR #: [id number] : 1985 Age/Sex: 31/M Req #: [id number] [facility] Physician: Ordered by: LUDY VICKERS MD Report #: [id number] Location: ER Room/Bed: Procedure: [id number] US/US GALLBLADDER Exam D ate: Exam Time: REPORT STATUS: Signed PROC EDURE: US GALLBLADDER COMPARISON: None. INDICATIONS: Abdominal Pain TECHNIQUE: Johnson-scale and color doppler transverse and longitudinal images of the right upper quadrant of the abdomen were obtained. FINDINGS: Exam zavala ited by patient's body habitus Liver: 18.0 cm in right mid-clavicular li ne. Increased echogenicity. No masses. Main portal vein: 1.3 cm. Hepatopeta l flow. Gallbladder: No stones, sludge, wall thickening, or pericholecysti c fluid. Common Bile Duct: 0.4 cm Sonographic Hoskins's sign: Negative Right kidney: 12.3 cm. Normal echogenicity. No solid masses or hydronephr osis. Pancreas: The visualized portions of the neck and proximal body are unremarkable. Inferior vena cava: Unremarkable Aorta: Visualized port ions are within normal limits Ascites: None in the right upper quadrant of th e abdomen. CONCLUSION: 1. Hepatomegaly, with diffuse fatty infiltrati on. No focal lesions. 2. No sonographic evidence of cholelithiasis or cholecys titis. Marek Marrero M.D. Dictated by: Marek Marrero M.D. on 10/26/2016 at 16:34 Electronically approved by: Marek maxwell M.D. on 10/26/2016 at 16:34 Dictated By: MAREK MARRERO MD 1634 Transcribed By: Sandro GOMEZ on 10/26/161633 COPY TO: LUDY VICKERS MD
[2020-02-10 14:43] LABS: CLARITY,URINE CLEAR (CLEAR); COLOR,URINE YELLOW (YELLOW); LEUKOCYTE ESTERASE ,URINE NEGATIVE (NEGATIVE); NITRITE,URINE NEGATIVE (NEGATIVE)
[2020-02-10 14:44] LABS: BILIRUBIN,URINE NEGATIVE (NEGATIVE); KETONES,URINE 2+ (NEGATIVE); PROTEIN,URINE DIPSTICK NEGATIVE (NEGATIVE); URINE UROBILINOGEN 0.2 mg/dL (0.2 - 1)
[2020-02-10 14:49] LABS: BACTERIA,URINE FEW /HPF; EPITHELIAL CELLS,URINE RARE /LPF; RBC,URINE 0-5 /HPF (0-5); WBC,URINE (MAN) 0-5 /HPF (0-5)
[2020-02-10 14:50] LABS: MUCUS,URINE FEW (RARE)
[2020-02-10 15:19] LABS: BASOPHILS # (AUTO) 0.1 (0.0-0.1); BASOPHILS % 0.7 % (0.0-1.0); EOSINOPHILS # (AUTO) 0.2 (0.0-0.4); EOSINOPHILS % 2.3 % (0.0-6.0); HEMATOCRIT 50.6 % (38.2-49.6); LYMPHOCYTES # (AUTO) 2.5 (1.0-3.2); LYMPHOCYTES % 36.2 % (18.0-39.1); MEAN CORPUSCULAR HEMOGLOBIN 31.1 pg (28-32); MEAN CORPUSCULAR HGB CONC 33.6 g/dL (31-35); MEAN CORPUSCULAR VOLUME 92.7 fL (81-99); MONOCYTES # (AUTO) 0.5 (0.2-0.8); MONOCYTES % 7.4 % (4.4-11.3); NEUTROPHILS # (AUTO) 3.6 (2.1-6.9); PLATELET COUNT 174 x10e3/uL (140-360); RED BLOOD COUNT 5.46 x10e6/uL (4.3-5.7); RED CELL DISTRIBUTION WIDTH 12.4 % (11.7-14.4)
[2020-02-10 15:31] LABS: ALANINE AMINOTRANSFERASE 33 IU/L (0-55); ALBUMIN 5.1 g/dL (3.5-5.0); ALBUMIN/GLOBULIN RATIO 1.7 (0.8-2.0); ALKALINE PHOSPHATASE 43 IU/L (40-150); ANION GAP 16.8 mmol/L (8-16); BLOOD UREA NITROGEN 10 mg/dL (7-26); BUN/CREATININE RATIO 10 (6-25); CALCIUM 9.7 mg/dL (8.4-10.2); CARBON DIOXIDE 29 mmol/L (22-29); CHLORIDE 100 mmol/L (98-107); EST GLOMERULAR FILTRATION RATE > 60 ML/MIN (60-); GLUCOSE 83 mg/dL (74-118); LIPASE 26 U/L (8-78); POTASSIUM 3.8 mmol/L (3.5-5.1); SODIUM 142 mmol/L (136-145)
[2020-02-10] MEDS ORDERED: IOPAMIDOL 370 MG/ML 200 ML INFUS..BTL INJ ONE (16:19)
[2020-02-10] MEDS ORDERED: SODIUM CHLORIDE 0.9% 50ML 50 ML ONE (16:19)
--- NOTE | 2020-02-10 16:37 | Diagnostic Imaging Report ---
EXAM: CT Abdomen and Pelvis WITH intravenous contrast INDICATION: Right upper quadrant abdominal pain COMPARISON: None. TECHNIQUE: Abdomen and pelvis were scanned utilizing a multidetector helical scanner from the lung base to the pubic symphysis after administration of IV contrast. Coronal and sagittal reformations were obtained. Routine protocol was performed. Scan was performed during portal venous phase. IV CONTRAST: 100mL of Isovue 370 ORAL CONTRAST: Water RADIATION DOSE: Total DLP: 884 mGy*cm Dose modulation, iterative reconstruction, and/or weight based adjustment of the mA/kV was utilized to reduce the radiation dose to as low as reasonably achievable. FINDINGS: LOWER THORAX: Normal. HEPATOBILIARY: No focal hepatic lesions. No biliary ductal dilatation. The gallbladder appears unremarkable. SPLEEN: No splenomegaly. PANCREAS: No focal masses or ductal dilatation. ADRENALS: No adrenal nodules. KIDNEYS/URETERS: No hydronephrosis, stones, or solid mass lesions. PELVIC ORGANS/BLADDER: Unremarkable. PERITONEUM / RETROPERITONEUM: No free air or fluid. LYMPH NODES: No lymphadenopathy. VESSELS: Unremarkable. GI TRACT: No distention or wall thickening. BONES AND SOFT TISSUES: Unremarkable. IMPRESSION: No acute findings in the abdomen or pelvis. Signed by: Jose Luis Cardona MD on 02/10/2020 4:34 PM
== END 2020-02-10 17:04 | disposition home or self-care (01) ==
LOC: ER 14:34
DX: R10.11 Right upper quadrant pain (principal); K76.9 Liver disease, unspecified; F41.9 Anxiety disorder, unspecified
CPT/HCPCS: 36415; 74177; 80053; 81001; 83690; 85025; 99284; Q9967